=== PATIENT | female | born 2000 | race Caucasian/White ===

== ENCOUNTER 2023-09-24 11:47 | Emergency (ER) | payer SELFPAY ==
[2023-09-24 12:07] VITALS: BMI 29.9
[2023-09-24] MEDS: SODIUM CHLORIDE 0.9% 1000 ML INFUS.BAG IV ONE (12:53)
[2023-09-24 12:59] LABS: BASO % 0.6 % (0-2.0); EOS % 0.5 % (0-4.5); HEMATOCRIT 44.4 % (32.4-45.2); HEMOGLOBIN 15.5 GM/dL (10.7-15.3); LYMPH % 22.4 % (8-40); MCH 30.7 pg (25.7-33.7); MEAN CELL VOLUME 87.7 fl (80-96); MEAN PLT VOLUME 7.6 fl (7.5-11.1); NEUT % 70.5 % (42.8-82.8); PLATELET COUNT 369 10^3/uL (134-434); RBC 5.06 M/mm3 (3.60-5.2); RDW 13.1 % (11.6-15.6); URINE APPEARANCE CLEAR; URINE BILIRUBIN NEGATIVE (NEGATIVE); URINE COLOR YELLOW; URINE GLUCOSE (UA) NEGATIVE (NEGATIVE); URINE KETONE 1+ (NEGATIVE); URINE LEUK ESTERASE NEGATIVE (NEGATIVE); URINE NITRITE NEGATIVE (NEGATIVE); URINE PROTEIN NEGATIVE (NEGATIVE); URINE UROBILINOGEN 0.2 mg/dL (0.2-1.0); WHITE BLOOD COUNT 9.9 K/mm3 (4.0-10.0)
[2023-09-24 13:08] LABS: INR 1.01 (0.83-1.09); PROTHROMBIN TIME (PATIENT) 11.6 SEC (9.7-13.0)
[2023-09-24 13:11] LABS: ACTIVATED PTT 32.6 SECONDS (25.2-36.5)
[2023-09-24 13:21] LABS: POTASSIUM 3.9 mmol/L (3.5-5.1)
[2023-09-24 13:23] LABS: CALCIUM 9.6 mg/dL (8.5-10.1)
[2023-09-24 13:24] LABS: ALBUMIN 4.4 g/dl (3.4-5.0); MAGNESIUM 1.7 mg/dL (1.8-2.4)
[2023-09-24 13:26] LABS: METHADONE, UR NEGATIVE (NEGATIVE); URINE BENZODIAZEPINES NEGATIVE (NEGATIVE)
[2023-09-24 13:27] LABS: COCAINE, UR NEGATIVE (NEGATIVE); CREATININE 0.9 mg/dL (0.55-1.3); OPIATES, URI NEGATIVE (NEGATIVE)
[2023-09-24 13:29] LABS: BILIRUBIN,TOTAL 0.6 mg/dL (0.2-1); TOT PROT 7.9 g/dl (6.4-8.2)
[2023-09-24 13:32] LABS: PHENCYCLIDINE,URINE NEGATIVE (NEGATIVE)
[2023-09-24 13:39] LABS: URINE AMPHETAMINES POSITIVE (NEGATIVE); URINE BARBITURATES NEGATIVE (NEGATIVE)
[2023-09-24 13:51] LABS: HCG,QUALITATIVE URINE Negative
[2023-09-24] MEDS: LACTATED RINGERS SOLUTION 1,000 ML/1,000 ML INFUS.BAG IV SCH (13:53)
[2023-09-24 15:41] VITALS: BP 113/84; PULSE 85; RESP 20; TEMP 98.4
[2023-09-24] MEDS: SODIUM CHLORIDE 0.9% 500 ML INFUS.BAG IV ONE ×2 (16:00→18:21)
[2023-09-24] MEDS ORDERED: MAG HYDROX/AL HYDROX/SIMETH 30 ML UNIT-DOSE CUP ONE (18:15)
[2023-09-24] MEDS ORDERED: FAMOTIDINE 20 MG/50 ML IVPB 20 MG/50 ML MG IVPB ONE (18:15)
[2023-09-24] MEDS: MAG HYDROX/AL HYDROX/SIMETH -MYLANTA- ORAL SUSPENSION PO ONE (18:21)
[2023-09-24] MEDS: FAMOTIDINE 20 MG/50 ML IVPB 20 MG/50 ML MG IVPB ONE (18:21)
== END 2023-09-24 19:18 | disposition home or self-care (01) ==
LOC: JER 11:47
PROC: 3E033GC Introduction of Other Therapeutic Substance into Peripheral Vein, Percutaneous Approach (ICD-10-PCS; principal; 2023-09-24)
DX: F10.10 Alcohol abuse, uncomplicated (principal); R00.2 Palpitations; R07.9 Chest pain, unspecified; R06.02 Shortness of breath; Y90.1 Blood alcohol level of 20-39 mg/100 ml
CPT/HCPCS: 36415; 80053; 80307; 81003; 83735; 84703; 85025; 85610; 85730; 93005; 93010; 99284-25